=== PATIENT | female | born 1960 | race Caucasian/White ===

== ENCOUNTER 2018-11-26 07:39 | Emergency (ER) | payer OTHER, SELFPAY ==
[2018-11-26] MEDS ORDERED: Bupivacaine 0.5% 10 ML VIAL ONE (08:17)
[2018-11-26] MEDS ORDERED: Lidocaine 1% PF 5 ML VIAL ONE (08:17)
--- NOTE | 2018-11-26 09:08 | RAD ---
LEFT WRIST 3 VIEWS: DATE: 11/26/2018. COMPARISON: None. HISTORY: Fall, trauma, pain. FINDINGS: Thee is a comminuted and impacted intraarticular fracture of the distal left radius extending into th e radiocarpal joint. There is significant dorsal displacement and dorsal angulation of the distal fr acture fragment. Post reduction imaging is advised. IMPRESSION: Comminuted impacted displaced and angulated distal left radial fracture as above. POS: [facility]
--- NOTE | 2018-11-26 09:51 | RAD ---
EXAM: 2 views of the left wrist HISTORY: Distal radius fracture COMPARISON: 11/26/2018 at 7:58 AM FINDINGS: 2 views of the left wrist shows an intra-articular comminuted fracture of the distal radius . There is been slight improvement in alignment compared to the prior radiograph. Surrounding soft tissue swelling is seen. IMPRESSION: Reduction of distal radius fracture.
== END 2018-11-26 10:16 | disposition home or self-care (01) ==
LOC: ERS 07:39
DX: S52.572A Other intraarticular fracture of lower end of left radius, initial encounter for closed fracture (principal); I10 Essential (primary) hypertension; Z79.899 Other long term (current) drug therapy; W01.0XXA Fall on same level from slipping, tripping and stumbling without subsequent striking against object, initial encounter
CPT/HCPCS: 25605; J2001; J3490

== ENCOUNTER 2018-11-29 10:28 | Day surgery (SDC) | payer OTHER ==
[2018-11-28 13:20] VITALS: BMI 31.6
[2018-11-29] MEDS ORDERED: Fentanyl 100 MCG/2 ML VIAL ONE ×5 (11:10→14:59)
[2018-11-29] MEDS ORDERED: Midazolam HCl 2 mg/2 ml Vial ONE ×2 (11:10→11:58)
[2018-11-29] MEDS ORDERED: Ropivacaine 0.5% HCl/PF (150 MG/30 ML VIAL) ONE (11:33)
[2018-11-29] MEDS ORDERED: Bupivacaine HCl 0.5%/Epinephrine 1:200,000/PF 30 ml Vial ONE (11:33)
[2018-11-29] MEDS ORDERED: Lidocaine 1% PF 5 ML VIAL ONE (11:46)
[2018-11-29] MEDS ORDERED: PROPOFOL 200 MG/20 ML VIAL ONE (11:46)
[2018-11-29] MEDS ORDERED: Ondansetron PF 4 MG/2 ML Vial ONE (11:46)
[2018-11-29] MEDS ORDERED: Ropivacaine 0.2% 550 ML 550 ML NERVE BLCK SCH (12:42)
[2018-11-29] MEDS ORDERED: HYDROcodone/Acetaminophen 10/325 mg Tablet PO PRN ×2 (12:42)
[2018-11-29] MEDS ORDERED: Ketorolac Tromethamine 30 MG/ML VIAL IVP PRN (12:42)
[2018-11-29] MEDS ORDERED: Promethazine HCl 25 MG/ML VIAL IM PRN (12:42)
[2018-11-29] MEDS ORDERED: Ondansetron PF 4 MG/2 ML Vial IVP PRN (12:42)
[2018-11-29] MEDS ORDERED: Zolpidem Tartrate 5 MG TAB PO PRN (12:42)
[2018-11-29] MEDS ORDERED: traMADol HCl 50 MG TAB PO PRN ×2 (12:42)
[2018-11-29] MEDS ORDERED: Famotidine/PF 20 mg/2ml Vial ONE (13:09)
[2018-11-29] MEDS ORDERED: Ketorolac Tromethamine 30 MG/ML VIAL ONE (15:31)
[2018-11-29] MEDS ORDERED: Acetaminophen 1,000 MG in Premix Bag 1 BAG IVPB SCH (15:45)
--- NOTE | 2018-11-29 15:52 | RAD ---
LEFT WRIST: 11/29/18 Two fluoroscopic images are presented from [place]> INDICATION: Imaging during open reduction internal fixation left wrist. FINDINGS/IMPRESSION: These two images show plate and screws transfixing the distal radius fracture. POS: [facility]
--- NOTE | 2018-11-30 08:37 | OP ---
DATE OF PROCEDURE: 11/29/2018 OPERATION PERFORMED: Open reduction and internal fixation of left distal radius fracture. PREOPERATIVE DIAGNOSIS: Displaced left distal radius fracture. POSTOPERATIVE DIAGNOSIS: Displaced left distal radius fracture. COMPLICATIONS: None. ESTIMATED BLOOD LOSS: Minimal. ANESTHESIA: General. INDICATIONS: Mr. Singer is a 58-year-old female, who fell and fractured his left distal radius. He sustained a displaced fracture. He was indicated for open reduction and internal fixation. Risks were reviewed in detail. Risks to include infection, nerve or vascular injury, hardware pain, and others. DESCRIPTION OF PROCEDURE: Mr. Singer was identified in the preoperative holding area. His correct extremity was marked. He was carried to the operating room. He was positioned supine. General anesthesia was induced. A multidisciplinary time-out was performed. The left arm was prepped and draped in sterile fashion. We began the procedure with a volar approach to the wrist. We dissected down to the FCR interval. We exposed the pronator quadratus, which was elevated from the bone. At this point, we pulled traction on the distal radius and reduced it into its anatomic position. We then applied our [employer] volar distal radius plate. We applied multiple screws proximally and distally, locking the plate to the bone. There were no complications. At this point, we x-rayed in orthogonal planes. We finished all screw holes. We thoroughly irrigated. We then closed the tissues in layers. A sterile dressing and a splint were placed. The patient was taken to the recovery room. Job ID: [id number]
--- NOTE | 2018-12-04 10:25 | EKG ---
Test Reason : PREOP Blood Pressure : / mmHG Vent. Rate : 061 BPM Atrial Rate : 061 BPM P-R Int : 142 ms QRS Dur : 090 ms QT Int : 432 ms P-R-T Axes : 016 -27 014 degrees QTc Int : 434 ms Normal sinus rhythm Normal ECG Confirmed by HORACE SHORT MD ([id number]) on 12/04/2018 10:25:22 AM Referred By: BRIAN Confirmed By:HORACE SHORT MD
== END 2018-11-29 16:35 | disposition home or self-care (01) ==
LOC: SDC 10:28
PROVIDERS: ATTEND Orthopaedic Surgery
PROC: 0PSJ04Z Reposition Left Radius with Internal Fixation Device, Open Approach (ICD-10-PCS; principal; 2018-11-29)
DX: S52.532A Colles' fracture of left radius, initial encounter for closed fracture (principal); I10 Essential (primary) hypertension; E83.119 Hemochromatosis, unspecified; Z79.899 Other long term (current) drug therapy; Z88.8 Allergy status to other drugs, medicaments and biological substances; W17.89XA Other fall from one level to another, initial encounter; Y99.0 Civilian activity done for income or pay
CPT/HCPCS: 76000; 93005; 93010; A4306; C1713; J0131; J0670; J0690; J1885; J2001; J2250; J2405; J2704; J2795; J3010; S0028